=== PATIENT | male | born 1980 | race Caucasian/White ===

== ENCOUNTER 2017-04-03 11:54 | Emergency (ER) | payer OTHER ==
--- NOTE | 2017-04-03 12:21 | CPEKG ---
Heart Rate: 63 RR Interval: 952 P-R Interval: 148 QRSD Interval: 100 QT Interval: 400 QTC Interval: 410 P [place]: 34 QRS [place]: 18 T Wave [place]: 55 EKG Severity - NORMAL ECG - EKG Impression: SINUS RHYTHM Electronically Signed By: Acosta Zhang 03-Apr-2017 13:20:24
--- NOTE | 2017-04-03 13:17 | EDPHY ---
H & P Time Seen by Provider: 04/03/17 13:06 HPI/ROS: CHIEF COMPLAINT: Left chest pain HISTORY OF PRESENT ILLNESS: This 36-year-old man presents with an episode today of left-sided chest pain. He describes over the last week he has been having intermittent twinges of left-sided chest pain which last only a few minutes maybe a maximum of 10 minutes, and are not associated with any other symptoms and are not exertional or pleuritic. Today around 11:00 a.m. he was riding in a car for work when he developed a left-sided twinge of chest discomfort radiating to his left arm which lasted about 30 minutes. No associated shortness of breath nausea vomiting or diaphoresis. Symptoms are currently completely resolved. Over the past week he has been walking regularly for his job without any trigger of these symptoms. REVIEW OF SYSTEMS: Eye: no change in vision ENT: no sore throat Cardiac: HPI Pulmonary: no cough or hemoptysis, no SOB Abdomen: no vomiting, diarrhea, abdominal pain Musculoskeletal: no back pain or leg swelling Skin: no rash Neuro: no headache Constitutional: no fever : no urinary symptoms A comprehensive 10 point review of systems is otherwise negative aside from elements mentioned in the history of present illness. PAST MEDICAL HISTORY: Hypertension and depression Family history: Negative for premature coronary disease or venous thromboembolism. Social history: Negative for tobacco or cocaine use, no recent travel or immobilization. General Appearance: Alert and conversant, cooperative. Eyes: No scleral icterus. ENT, Mouth: Normal mucous membranes. Respiratory: Normal respiratory effort, breath sounds equal, lungs are clear to auscultation. Speaks in full sentences, no wheezing. Cardiovascular: Regular rate and rhythm. Gastrointestinal: Abdomen is soft and non tender. Neurological: Alert and oriented x3. Normally conversant. Face symmetric, normal movement and sensation in all extremities. Skin: Warm and dry, no rashes. Musculoskeletal: No peripheral edema and no joint swelling. No calf tenderness. Legs equal. Psychiatric: Not agitated. Emergency Department course/MDM: Patient is not tachycardic or hypoxic, no signs or symptoms of DVT or PE. PERC negative. EKG is normal, plan for chest x-ray and troponin. Outpatient stress testing if negative. 1440: Diagnostics reviewed with the patient, remains asymptomatic. HEART score 1 for hypertension. History atypical for ACS, asymptomatic now. Discussed with Cardiology[facility]uta at 1510; will do stress testing tomorrow in the office at 1500. Smoking Status: Never smoked Constitutional: Initial Vital Signs Temperature (C) 37.0 C 04/03/17 11:57 Heart Rate 70 04/03/17 11:57 Respiratory Rate 16 04/03/17 11:57 Blood Pressure 145/110 H 04/03/17 11:57 O2 Sat (%) 98 04/03/17 11:57 O2 Delivery Mode Room Air Allergies/Adverse Reactions: No Known Allergies Allergy (Unverified 04/03/17 11:57) Home Medications: Medication Instructions Recorded Bisoprolol Fumarate 04/03/17 Paxil 04/03/17 Medical Decision Making - Diagnostics EKG Interpretation: 12-lead EKG interpreted by me; official reading is in trace master. My interpretation is sinus rhythm rate 63, no ischemic changes. Imaging Results: Imaging Impressions Chest X-Ray 04/03/17 13:18 Impression: Normal. - Data Points Laboratory Results: Laboratory Results 04/03/17 12:10 04/03/17 12:10 04/03/17 04/03/17 12:10 12:10 WBC 8.52 10^3/uL 10^3/uL (3.80-9.50) RBC 5.45 10^6/uL 10^6/uL (4.40-6.38) Hgb 17.1 g/dL g/dL (13.7-17.5) Hct 47.9 % % (40.0-51.0) MCV 87.9 fL fL (81.5-99.8) MCH 31.4 pg pg (27.9-34.1) MCHC 35.7 g/dL g/dL (32.4-36.7) RDW 13.6 % % (11.5-15.2) Plt Count 230 10^3/uL 10^3/uL (150-400) MPV 10.8 fL fL (8.7-11.7) Neut % (Auto) 38.9 % L % (39.3-74.2) Lymph % (Auto) 50.7 % H % (15.0-45.0) Rankin % (Auto) 7.4 % % (4.5-13.0) Eos % (Auto) 1.4 % % (0.6-7.6) Baso % (Auto) 0.7 % % (0.3-1.7) Nucleat RBC Rel Count 0.0 % % (0.0-0.2) Absolute Neuts (auto) 3.31 10^3/uL 10^3/uL (1.70-6.50) Absolute Lymphs (auto) 4.32 10^3/uL H 10^3/uL (1.00-3.00) Absolute Monos (auto) 0.63 10^3/uL 10^3/uL (0.30-0.80) Absolute Eos (auto) 0.12 10^3/uL 10^3/uL (0.03-0.40) Absolute Basos (auto) 0.06 10^3/uL 10^3/uL (0.02-0.10) Absolute Nucleated RBC 0.00 10^3/uL 10^3/uL (0-0.01) Immature Gran % 0.9 % % (0.0-1.1) Immature Gran # 0.08 10^3/uL 10^3/uL (0.00-0.10) Sodium 139 mEq/L mEq/L (134-144) Potassium 4.1 mEq/L mEq/L (3.5-5.2) Chloride 103 mEq/L mEq/L (97-110) Carbon Dioxide 22 mEq/l mEq/l (22-31) Anion Gap 14 mEq/L mEq/L (8-16) BUN 15 mg/dL mg/dL (7-23) Creatinine 0.9 mg/dL mg/dL (0.7-1.3) Estimated GFR > 60 Glucose 87 mg/dL mg/dL (70-100) Calcium 10.1 mg/dL mg/dL (8.5-10.4) Troponin I < 0.012 ng/mL ng/mL (0.000-0.034) Departure - Departure Disposition: Home, Routine, Self-Care Clinical Impression: Chest pain Condition: Good Instructions: Chest Pain (ED) Additional Instructions: You have an appointment tomorrow at 3:00 p.m. for stress testing in the office with [facility]. Please do not take your blood pressure medication between now and then. Referrals: LINSEY OROZCO [Primary Care Provider] - As per Instructions Eddi Tipton, [employer] [Certified Nurse Practioner] - 04/04/17 3:00 pm
[2017-04-03 13:25] LABS: % IMMATURE GRANULYOCYTES 0.9 % (0.0-1.1); ABSOLUTE IMMATURE GRANULOCYTES 0.08 10^3/uL (0.00-0.10); ADD DIFF? NO; ADD MORPH? NO; ADD SCAN? NO; ATYPICAL LYMPHOCYTE FLAG 0 (0-99); FRAGMENT RBC FLAG 0 (0-99); HEMATOCRIT 47.9 % (40.0-51.0); HEMOGLOBIN 17.1 g/dL (13.7-17.5); LEFT SHIFT FLG 0 (0-99); LIPEMIA HEMOLYSIS FLAG 90 (0-99); MEAN CELL HEMOGLOBIN 31.4 pg (27.9-34.1); MEAN CELL HEMOGLOBIN CONCENTR. 35.7 g/dL (32.4-36.7); MEAN CELL VOLUME 87.9 fL (81.5-99.8); MEAN PLATELET VOLUME 10.8 fL (8.7-11.7); PLATELET CLUMPS FLAG 0 (0-99); PLATELET COUNT 230 10^3/uL (150-400); RED BLOOD CELL COUNT 5.45 10^6/uL (4.40-6.38); RED CELL DISTRIBUTION WIDTH 13.6 % (11.5-15.2)
[2017-04-03 13:35] LABS: ANION GAP 14 mEq/L (8-16); CALCIUM 10.1 mg/dL (8.5-10.4); CARBON DIOXIDE 22 mEq/l (22-31); CHLORIDE 103 mEq/L (97-110); CREATININE 0.9 mg/dL (0.7-1.3); GLOMERULAR FILTRATION RATE > 60; GLUCOSE 87 mg/dL (70-100); POTASSIUM 4.1 mEq/L (3.5-5.2); SODIUM 139 mEq/L (134-144)
[2017-04-03 13:44] LABS: TROPONIN I < 0.012 ng/mL (0.000-0.034)
[2017-04-03 14:03] VITALS: TEMP 98.1; O2SAT 95
[2017-04-03 15:28] VITALS: BP 147/89; PULSE 61; RESP 14
== END 2017-04-03 15:27 | disposition home or self-care (01) ==
DX: R07.9 Chest pain, unspecified (principal); I10 Essential (primary) hypertension